=== PATIENT | female | born 1985 | race Caucasian/White ===

== ENCOUNTER 2016-09-10 02:06 | Inpatient (IN) | payer MEDICAID ==
--- NOTE | 2016-09-10 02:15 | EDPHY ---
H & P Source: Patient, EMS - Medical/Surgical History Hx Asthma: No Hx Chronic Respiratory Disease: No Hx Diabetes: No Hx Cardiac Disease: No Hx Renal Disease: No Hx Cirrhosis: No Hx Alcoholism: No Hx HIV/AIDS: No Hx Splenectomy or Spleen Trauma: No Other PMH: None per pt - intubated and aspiration PNE recently. PSHx: hernia 1992. PMHx: bipolar, ADHD, anxiety - Social History Smoking Status: Former smoker <Dom Wilson - Last Filed: 09/10/16 06:51> <Alyssa Chavezh S - Last Filed: 09/10/16 14:33> <Marc Thomas - Last Filed: 09/10/16 21:39> HPI/ROS: HPI CHIEF COMPLAINT: Drug overdose suicidal ideation M1 HISTORY OF PRESENT ILLNESS: This patient is a 31-year-old female significant past medical history for bipolar disorder, hepatitis-C, she presents emergency room on M1 hold. She tells me that she took 5 2 mg Xanax, and 5 Ambien since approximately 30 minutes ago to kill herself. She denies any other ingestion. She tells me she is more depressed she does not have access to her Lamictal or lithium. Upon arrival here in the emergency room she has a GCS 15, she is alert or x4 however she does have slow response. Past Medical History: Bipolar disorder, hepatitis-C Past Surgical History: Denies significant surgical history Social History: Denies use of drugs alcohol tobacco products Family History: Noncontributory ROS REVIEW OF SYSTEMS: A comprehensive 10 point review of systems is otherwise negative aside from elements mentioned in the history of present illness. Exam Constitutional triage nursing summary reviewed, vital signs reviewed, awake/ alert. Slowed speech Eyes normal conjunctivae and sclera, EOMI, PERRLA. HENT normal inspection, atraumatic, moist mucus membranes, no epistaxis, neck supple/ no meningismus, no raccoon eyes. Respiratory clear to auscultation bilaterally, normal breath sounds, no respiratory distress, no wheezing. Cardiovascular rate normal, regular rhythm, no murmur, no edema, distal pulses normal. Gastrointestinal soft, non-tender, no rebound, no guarding, normal bowel sounds, no distension, no pulsatile mass. Genitourinary no CVA tenderness. Musculoskeletal no midline vertebral tenderness, full range of motion, no calf swelling, no tenderness of extremities, no meningismus, good pulses, neurovascularly intact. Skin pink, warm, & dry, no rash, skin atraumatic. Neurologic awake, alert and oriented x 3, AAOx3, moves all 4 extremities equally, motor intact, sensory intact, CN II-XII intact, normal cerebellar, normal vision, slurred speech Psychiatric normal mood/affect. Heme/Lymph/Immune no lymphadenopathy. Differential Diagnosis: Includes but is not limited to in a particular order, polysubstance overdose, drug overdose, intentional overdose for suicide attempt , worsening depression, bipolar disorder Medical Decision Making: this patient had an IV established obtain blood work, including tox screen, alcohol level, Tylenol and salicylate level, patient be hydrated IV fluids obtain EKG should be placed on full monitor and storage bin tender with pulse ox to monitor her oxygen level given that she ingested medications that can depress respiratory status. will need to contact poison Control. Re-evaluation: EKG interpretation by me on record in [facility] system. Impression time of EKG is 2:53 a.m., this is sinus rhythm rate of 75, no signs of cardiac arrhythmia, no signs of ischemia. Borderline prolonged QT interval 428. Otherwise unremarkable EKG. 0524: re-examination at this time patient is still under the influence of benzo she is slurring her speech. She is not medically cleared. She needs further observation. She has not had any hypotension or significant sedation. She is sleepy. Once she metabolize the Xanax and Ambien she will need mental health evaluation. 0651: Sleeping. Stable. Signed over to Dr. Chavez at 7am Shift Change. No acute events overnight. Patient has been stable. Patient still pending mental health evaluation. Still needs to clear from Xanax and Ambien. (Dom Wilson) Constitutional: Initial Vital Signs Temperature (C) 36.9 C 09/10/16 02:19 Heart Rate 77 09/10/16 02:19 Respiratory Rate 14 09/10/16 02:19 Blood Pressure 114/78 09/10/16 02:19 O2 Sat (%) 97 09/10/16 02:19 O2 Delivery Mode Room Air Allergies/Adverse Reactions: No Known Allergies Allergy (Verified 07/10/16 12:28) Home Medications: Medication Instructions Recorded [place]son Carbonate ER [Eskalith Cr 450 mg PO HS #20 tab 07/05/16 450 mg (*)] Alprazolam [Xanax] 2 mg PO DAILY PRN 09/10/16 Dextroamphetamine/Amphetamine 20 mg PO DAILY PRN 09/10/16 [Adderall Xr 20 mg Capsule] QUEtiapine FUMARATE [Seroquel 50 50 mg PO HS 09/10/16 mg (*)] lamOTRIGine [Lamictal] 150 mg PO DAILY 09/10/16 Medical Decision Making <Dom Wilson - Last Filed: 09/10/16 06:51> <Monica Chavez - Last Filed: 09/10/16 14:33> <Marc Thomas - Last Filed: 09/10/16 21:39> ED Course/Re-evaluation: 1115: The patient was evaluated by mental health. They will look for placement for in-patient psychiatric placement. 2:30pm: Awaiting inpatient psychiatric admission. Signed over to Dr. Thomas at shift change. (Monica Chavez) Other Provider: Patient accepted to inpatient psychiatric facility. Stable over the course of my shift. (Marc Thomas) - Data Points Laboratory Results: Laboratory Results 09/10/16 02:28 09/10/16 02:28 Medications Given: Discontinued Medications Sodium Chloride (Ns) 1,000 mls @ 0 mls/hr IV ONCE ONE PRN Reason: Wide Open Stop: 09/10/16 02:20 Last Admin: 09/10/16 02:38 Dose: 1,000 mls Sodium Chloride (Ns) 1,000 mls @ 0 mls/hr IV ONCE ONE PRN Reason: Wide Open Stop: 09/10/16 03:40 Last Admin: 09/10/16 03:41 Dose: 1,000 mls Sodium Chloride (Ns) 1,000 mls @ 0 mls/hr IV ONCE ONE PRN Reason: Wide Open Stop: 09/10/16 06:11 Last Admin: 09/10/16 06:26 Dose: 1,000 mls Lamotrigine (Lamictal) 150 mg PO EDNOW ONE Stop: 09/10/16 09:08 Last Admin: 09/10/16 09:33 Dose: 150 mg [place] Carbonate (Eskalith Cr) 450 mg PO EDNOW ONE Stop: 09/10/16 09:09 Last Admin: 09/10/16 09:33 Dose: 450 mg Nicotine Polacrilex (Nicorette) 4 mg B EDNOW ONE Stop: 09/10/16 09:21 Last Admin: 09/10/16 09:20 Dose: 4 mg Nicotine Polacrilex (Nicorette) 2 mg B EDNOW ONE Stop: 09/10/16 16:26 Last Admin: 09/10/16 16:26 Dose: 2 mg Olanzapine (Zyprexa Zydis) 10 mg PO EDNOW ONE Stop: 09/10/16 15:21 Last Admin: 09/10/16 15:37 Dose: Not Given Departure <Dom Wilson - Last Filed: 09/10/16 06:51> <Monica Chavez - Last Filed: 09/10/16 14:33> <Marc Thomas - Last Filed: 09/10/16 21:39> - Departure Disposition: [facility] Clinical Impression: Suicidal ideation, Xanax use disorder, mild, abuse Condition: Fair <Dom Wilson - Last Filed: 09/10/16 06:51> Report Scribed for: Monica Chavez Report Scribed by: Jada Moyer Date of Report: 09/10/16 Time of Report: 11:16 <Monica Chavez - Last Filed: 09/10/16 14:33> <Marc Thomas - Last Filed: 09/10/16 21:39> Physician Review and Approval Statement: 09/10/16 11:16 Portions of this note were transcribed by a medical device assembler. I personally performed a history, physical exam, medical decision making, and confirmed accuracy of information the transcribed note. (Monica Chavez)
[2016-09-10] MEDS ORDERED: NS 1,000 ML IV ONE ×3 (02:19→06:10)
--- NOTE | 2016-09-10 02:54 | CPEKG ---
Heart Rate: 75 RR Interval: 800 P-R Interval: 158 QRSD Interval: 80 QT Interval: 428 QTC Interval: 479 P Rice: 55 QRS Rice: 78 T Wave Rice: 21 EKG Severity - BORDERLINE ECG - EKG Impression: SINUS RHYTHM EKG Impression: BORDERLINE T ABNORMALITIES, INFERIOR LEADS EKG Impression: BORDERLINE PROLONGED QT INTERVAL Electronically Signed By: Marc Thomas 10-Sep-2016 22:35:24
[2016-09-10 03:20] LABS: % IMMATURE GRANULYOCYTES 0.2 % (0.0-1.1); ABSOLUTE IMMATURE GRANULOCYTES 0.02 10^3/uL (0.00-0.10); ADD DIFF? NO; ADD MORPH? NO; ADD SCAN? NO; ATYPICAL LYMPHOCYTE FLAG 0 (0-99); FRAGMENT RBC FLAG 0 (0-99); HEMATOCRIT 40.2 % (38.0-47.0); HEMOGLOBIN 13.9 g/dL (12.6-16.3); LEFT SHIFT FLG 0 (0-99); LIPEMIA HEMOLYSIS FLAG 90 (0-99); MEAN CELL HEMOGLOBIN 30.5 pg (27.9-34.1); MEAN CELL HEMOGLOBIN CONCENTR. 34.6 g/dL (32.4-36.7); MEAN CELL VOLUME 88.2 fL (81.5-99.8); MEAN PLATELET VOLUME 11.2 fL (8.7-11.7); PLATELET CLUMPS FLAG 0 (0-99); PLATELET COUNT 268 10^3/uL (150-400); RED BLOOD CELL COUNT 4.56 10^6/uL (4.18-5.33); RED CELL DISTRIBUTION WIDTH 12.3 % (11.5-15.2)
[2016-09-10 03:32] LABS: ANION GAP 13 mEq/L (8-16); CALCIUM 9.4 mg/dL (8.5-10.4); CARBON DIOXIDE 21 mEq/l (22-31); CHLORIDE 109 mEq/L (97-110); CREATININE 0.8 mg/dL (0.6-1.0); ETHANOL SERUM < 10 mg/dL (0-10); GLOMERULAR FILTRATION RATE > 60; GLUCOSE 91 mg/dL (70-100); POTASSIUM 3.5 mEq/L (3.5-5.2); SALICYLATE < 1.0 mg/dL (2.0-20.0); SODIUM 143 mEq/L (134-144)
[2016-09-10 04:06] LABS: ALBUMIN 4.3 g/dL (3.5-5.0); BILIRUBIN,TOTAL 0.8 mg/dL (0.1-1.4); BILIRUBIN-CONJUGATED 0.5 mg/dL (0.0-0.5); BILIRUBIN-UNCONJUGATED 0.3 mg/dL (0.0-1.1); TOTAL PROTEIN 7.2 g/dL (6.3-8.2)
[2016-09-10 07:15] LABS: LITHIUM < 0.2 mEq/L (0.6-1.2)
[2016-09-10] MEDS ORDERED: lamoTRIgine 100 MG TAB PO ONE (09:07)
[2016-09-10] MEDS ORDERED: LITHIUM CARBONATE ER 450 MG TAB PO ONE (09:08)
[2016-09-10] MEDS ORDERED: NICOTINE POLACRILEX 2 MG GUM B ONE ×4 (09:16→16:25)
[2016-09-10] MEDS ORDERED: LORazepam 1 MG TAB ONE (11:42)
[2016-09-10] MEDS ORDERED: OLANZapine DISINTEGR 10 MG TAB PO ONE (15:20)
[2016-09-10] MEDS ORDERED: MAGNESIUM HYDROXIDE 30 ML UDCUP PO PRN (17:56)
[2016-09-10] MEDS ORDERED: MAG HYDROX/AL HYDROX/SIMETH 30 ML UDCUP PO PRN (17:57)
[2016-09-10] MEDS: LORazepam 0.5 MG TAB PO PRN (18:50)
[2016-09-10] MEDS: QUEtiapine FUMARATE 50 MG TAB PO SCH (19:26)
[2016-09-10] MEDS: NICOTINE POLACRILEX 2 MG GUM B PRN (19:32)
[2016-09-10] MEDS ORDERED: LITHIUM CARBONATE ER 450 MG TAB PO SCH (21:00)
[2016-09-11] MEDS: NICOTINE POLACRILEX 2 MG GUM B PRN ×3 (08:51→20:01)
[2016-09-11] MEDS: LORazepam 0.5 MG TAB PO PRN (08:51)
[2016-09-11] MEDS: lamoTRIgine 100 MG TAB PO SCH (08:51)
[2016-09-11] MEDS ORDERED: OLANZapine DISINTEGR 10 MG TAB ONE (09:04)
[2016-09-11] MEDS ORDERED: OLANZapine DISINTEGR 5 MG TAB ONE (09:04)
[2016-09-11] MEDS ORDERED: LITHIUM CARBONATE ER 450 MG TAB PO SCH (09:16)
[2016-09-11] MEDS ORDERED: OLANZapine DISINTEGR 5 MG TAB PO ONE (09:30)
[2016-09-11] MEDS ORDERED: NICOTINE POLACRILEX 2 MG GUM B ONE (10:00)
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
[2016-09-11] MEDS: LORazepam 1 MG TAB PO PRN (16:40)
--- NOTE | 2016-09-11 17:33 | BCON ---
[f rep st] BEHAVIORAL HEALTH CONSULTATION INTERNAL MEDICINE CONSULTATION DATE OF CONSULTATION: 09/11/2016 REFERRING PHYSICIAN: Preethi [place] MD REASON FOR REFERRAL: Medical clearance for inpatient behavioral health stay. HISTORY OF PRESENT ILLNESS: Ms. Sanchez was admitted through the emergency department yesterday with a chief complaint of "I'm feeling manic." She reported that she had taken five 2-mg tablets of Xanax and 5 Ambien tablets, and also smoked marijuana as a cry for help. She had recently lost her job. She was evaluated by the mental health team and admitted for further psychiatric care. Other than feeling sleepy, she is currently without any acute complaints. PAST MEDICAL HISTORY: 1. Bipolar disorder. 2. Hepatitis C. 3. Hanging episode in March of 2016. 4. Cardiomyopathy and tachycardia following the hanging episode. 5. Aspiration pneumonia after the hanging episode. PAST SURGICAL HISTORY: She has not had any surgeries. ALLERGIES: There are no known drug allergies. MEDICATIONS: She had been noncompliant. Her outpatient medications were: 1. Lamotrigine 150 mg p.o. daily. 2. Dextroamphetamine/amphetamine 20 mg p.o. daily p.r.n. 3. Alprazolam 2 mg p.o. daily p.r.n. 4. [place] 400 mg p.o. q.h.s. 5. Quetiapine 50 mg q.a.m. p.o. q.h.s. SOCIAL HISTORY: She is a former smoker. She has a history of alcohol use. She has a history of heroin abuse since age 20, but she has been abstinent since 2015. FAMILY HISTORY: Her half-sister committed suicide. Her brother has bipolar disorder and her mother has ADHD. REVIEW OF SYSTEMS: Other than feeling sleepy, a 10-point review of systems was done and was negative. PHYSICAL EXAM: VITALS: Blood pressure this morning was 156/86. Previously on her current stay, it has mostly been low or normal. Her heart rate was 87, her respiratory rate was 16, her oxygen saturation was 99% on room air, her temperature was 36.4 degrees centigrade. Her weight is 65.8 kg for a body mass index of 22.7. GENERAL: This is a well-nourished, well-developed woman who appears her chronologic age, cooperative, and in no acute distress. HEENT: Extraocular movements are intact. Pupils are equal, round, and reactive to light. Mucous membranes are moist. Dentition is in good condition. NECK: Supple. HEART: There is a regular rate and rhythm with no murmurs, rubs, or gallops. LUNGS: Clear to auscultation bilaterally. ABDOMEN: Soft, nontender , nondistended with normoactive bowel sounds. EXTREMITIES: There is no cyanosis, clubbing, or edema. NEUROLOGIC: She is napping when first encountered. She is easily awakened. She is alert and oriented x3. Cranial nerves 2-12 are grossly intact. There is no focal weakness. Sensation is intact to light touch, and gait is within normal limits. LABORATORY STUDIES: From the emergency room, CBC was completely within normal limits. Serum chemistries revealed a slightly low carbon dioxide of 21. Otherwise, renal function, electrolytes, and liver function were within normal limits. Toxicology screen in the serum was negative for salicylates, acetaminophen, or ethyl alcohol, and lithium was undetectable. Toxicology screen in the urine was non-negative for benzodiazepines and marijuana, and was otherwise negative for any substances of abuse. ASSESSMENT AND RECOMMENDATIONS: 1. Bipolar disorder: Currently being evaluated for medication changes by Psychiatry. 2. Hepatitis C by history: She has normal liver function tests, and no signs or symptoms of liver dysfunction. 3. Elevated blood pressure on 1 determination this morning; otherwise, she has mostly been normotensive or slightly low. Unclear etiology of the elevated blood pressure. Advise continuing to monitor. There is no indication to start medications at this point. I see no medical contraindications to this patient's continued stay in the inpatient behavioral health unit, or to any psychiatric medications or procedures. Thank you very much for including me in the care of this patient, and please do not hesitate to contact me or the hospitalist service should there be need for further medical evaluation. /[id number]/MODL MTDD
[2016-09-11] MEDS: LITHIUM CARBONATE 600 MG CAP PO SCH (19:48)
[2016-09-11] MEDS: QUEtiapine FUMARATE 50 MG TAB PO SCH (19:49)
[2016-09-11] MEDS: OLANZapine DISINTEGR 10 MG TAB PO PRN (19:50)
[2016-09-11] MEDS: ONDANSETRON DISINTEGRATING 4 MG TAB PO PRN (21:36)
[2016-09-12] MEDS: LITHIUM CARBONATE 600 MG CAP PO SCH ×2 (08:07→20:44)
[2016-09-12] MEDS: lamoTRIgine 100 MG TAB PO SCH (08:07)
[2016-09-12] MEDS: LORazepam 1 MG TAB PO PRN (08:10)
[2016-09-12] MEDS: OLANZapine DISINTEGR 10 MG TAB PO PRN (08:24)
[2016-09-12] MEDS: NICOTINE POLACRILEX 2 MG GUM B PRN ×3 (08:24→19:27)
--- NOTE | 2016-09-12 10:54 | SOAPPROG ---
SOAP Progress Note Assessment/Plan: Assessment: Pt is a 31 y/o S [employer] female who is known to this MD from previous psych admission 03/21 who has a hx of Bipolar D/O and heroin addiction who came in after she took an OD of meds and appeared manic. Plan:Pt is sleeping after received prn med will place pt on a STC Will continue current meds pt as put on Adderall and Xanax as an outpatient and her [place] lowered which contributed to her decompensation 09/12/16 10:50 Subjective: Pt earlier was agitated, lying on the floor, with manic sx -now is sleeping after given PRN meds Objective: Vital Signs Temp Pulse Resp BP Pulse Ox 36.4 C 76 14 136/76 H 94 09/12/16 06:00 09/12/16 06:00 09/12/16 06:00 09/12/16 06:00 09/12/16 06:00 Pt was manic this morning with psychomotor agitation she slept 8 hours last night + sx of acute michelle speech-pressured thoughts-illogical at times + Grandiosity memory-intact I/J-limited - Time Spent With Patient Time Spent With Patient: 20' - Pending Discharge Pending Discharge Within 24 Hours: No Pending Discharge Within 48 Hours: No ICD10 Worksheet Patient Problems: Problems Problem Status Diagnosed Suicidal ideation Acute Xanax use disorder, mild, abuse Acute Asphyxiation by hanging Acute
[2016-09-12] MEDS: QUEtiapine FUMARATE 50 MG TAB PO SCH (20:44)
[2016-09-13] MEDS: NICOTINE POLACRILEX 2 MG GUM B PRN ×6 (07:09→21:05)
[2016-09-13] MEDS: LORazepam 1 MG TAB PO PRN ×4 (07:38→19:03)
[2016-09-13] MEDS: LITHIUM CARBONATE 600 MG CAP PO SCH ×2 (09:07→20:23)
[2016-09-13] MEDS: lamoTRIgine 100 MG TAB PO SCH (09:07)
--- NOTE | 2016-09-13 11:19 | SOAPPROG ---
SOAP Progress Note Assessment/Plan: Assessment: Pt is a 31 y/o S [employer] female who is known to this MD from previous psych admission 03/21 who has a hx of Bipolar D/O and heroin addiction who came in after she took an OD of meds and appeared manic. Plan:Pt is stabilizing on a STC Will continue current meds pt as put on Adderall and Xanax as an outpatient and her [place] lowered which contributed to her decompensation AG Will increase Lamictal back to 200mg 09/13/16 11:19 Subjective: Pt with labile mood-angry at her employer as she feels they "made" her decompensate Objective: Vital Signs Temp Pulse Resp BP Pulse Ox 36.4 C 76 14 136/76 H 94 09/12/16 06:00 09/12/16 06:00 09/12/16 06:00 09/12/16 06:00 09/12/16 06:00 Pt is A+O x4 mood-labile affect-broad no S/H I no A/V H speech-pressured thoughts-more logical slept 9.5 hours energy level-wnl memory-impaired for recent events SR. LOGISTICS ANALYST conc-fair no formal delusions I/J-fair - Time Spent With Patient Time Spent With Patient: 25' - Pending Discharge Pending Discharge Within 24 Hours: No Pending Discharge Within 48 Hours: No ICD10 Worksheet Patient Problems: Problems Problem Status Diagnosed Suicidal ideation Acute Xanax use disorder, mild, abuse Acute Asphyxiation by hanging Acute
[2016-09-13] MEDS: OLANZapine DISINTEGR 10 MG TAB PO PRN ×2 (12:16→17:57)
[2016-09-13] MEDS: QUEtiapine FUMARATE 50 MG TAB PO SCH (20:23)
[2016-09-14] MEDS: LITHIUM CARBONATE 600 MG CAP PO SCH ×2 (07:23→20:35)
[2016-09-14] MEDS: LORazepam 1 MG TAB PO PRN ×3 (07:25→17:23)
[2016-09-14] MEDS: lamoTRIgine 100 MG TAB PO SCH (07:25)
[2016-09-14] MEDS: NICOTINE POLACRILEX 2 MG GUM B PRN ×5 (07:26→19:06)
[2016-09-14] MEDS: OLANZapine DISINTEGR 10 MG TAB PO PRN (07:26)
[2016-09-14] MEDS: ONDANSETRON DISINTEGRATING 4 MG TAB PO PRN (07:43)
--- NOTE | 2016-09-14 11:43 | SOAPPROG ---
SOAP Progress Note Assessment/Plan: Assessment: Pt is a 31 y/o S Jehovah'S Witness female who is known to this MD from previous psych admission 03/21 who has a hx of Bipolar D/O and heroin addiction who came in after she took an OD of meds and appeared manic. Plan:Pt is stabilizing on a STC Will continue current meds pt as put on Adderall and Xanax as an outpatient and her [place] lowered which contributed to her decompensation AG Will increase Lamictal back to 200mg 09/14/16 11:41 Subjective: "Up and down." Objective: Vital Signs Temp Pulse Resp BP Pulse Ox 36.4 C 76 14 136/76 H 94 09/12/16 06:00 09/12/16 06:00 09/12/16 06:00 09/12/16 06:00 09/12/16 06:00 Pt is A+O x4 mood-labile affect-broad speech-pressured thoughts-grandiose, paranoid about previous employer + sx michelle no A/V H no S/H I memory-intact conc-fair no STACEY I/J-fair - Time Spent With Patient Time Spent With Patient: 25' - Pending Discharge Pending Discharge Within 24 Hours: No Pending Discharge Within 48 Hours: No ICD10 Worksheet Patient Problems: Problems Problem Status Diagnosed Suicidal ideation Acute Xanax use disorder, mild, abuse Acute Asphyxiation by hanging Acute
[2016-09-14] MEDS: QUEtiapine FUMARATE 50 MG TAB PO SCH (20:36)
[2016-09-15] MEDS: NICOTINE POLACRILEX 2 MG GUM B PRN ×6 (04:40→18:42)
[2016-09-15] MEDS: LORazepam 1 MG TAB PO PRN ×4 (04:44→18:41)
[2016-09-15] MEDS: lamoTRIgine 100 MG TAB PO SCH (08:11)
[2016-09-15] MEDS: LITHIUM CARBONATE 600 MG CAP PO SCH ×2 (08:11→20:27)
--- NOTE | 2016-09-15 10:26 | SOAPPROG ---
SOAP Progress Note Assessment/Plan: Assessment: Pt is a 31 y/o S Congregational female who is known to this MD from previous psych admission 03/21 who has a hx of Bipolar D/O and heroin addiction who came in after she took an OD of meds and appeared manic. 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
[2016-09-15] MEDS: QUEtiapine FUMARATE 50 MG TAB PO SCH (20:26)
[2016-09-16] MEDS: LORazepam 1 MG TAB PO PRN ×5 (04:03→20:50)
[2016-09-16] MEDS: NICOTINE POLACRILEX 2 MG GUM B PRN ×6 (04:14→20:08)
[2016-09-16] MEDS: OLANZapine DISINTEGR 10 MG TAB PO PRN (05:38)
[2016-09-16] MEDS: lamoTRIgine 100 MG TAB PO SCH (08:13)
[2016-09-16] MEDS: LITHIUM CARBONATE 600 MG CAP PO SCH ×2 (08:13→19:24)
[2016-09-16] MEDS: QUEtiapine FUMARATE 50 MG TAB PO SCH (19:25)
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
[2016-09-16] MEDS: QUEtiapine FUMARATE 50 MG TAB PO PRN (21:49)
[2016-09-17] MEDS: LORazepam 1 MG TAB PO PRN ×5 (04:20→19:14)
[2016-09-17] MEDS: QUEtiapine FUMARATE 50 MG TAB PO PRN ×2 (04:24→11:04)
[2016-09-17] MEDS: NICOTINE POLACRILEX 2 MG GUM B PRN ×4 (05:44→18:03)
[2016-09-17] MEDS: lamoTRIgine 100 MG TAB PO SCH (06:07)
[2016-09-17] MEDS: ONDANSETRON DISINTEGRATING 4 MG TAB PO PRN (06:17)
[2016-09-17] MEDS: LITHIUM CARBONATE 600 MG CAP PO SCH ×2 (08:31→19:09)
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
[2016-09-17] MEDS: QUEtiapine FUMARATE 50 MG TAB PO SCH (19:08)
[2016-09-18] MEDS: lamoTRIgine 100 MG TAB PO SCH (05:08)
[2016-09-18] MEDS: LITHIUM CARBONATE 600 MG CAP PO SCH ×2 (05:09→19:19)
[2016-09-18] MEDS: QUEtiapine FUMARATE 50 MG TAB PO PRN ×2 (10:48→17:25)
[2016-09-18] MEDS: LORazepam 1 MG TAB PO PRN ×3 (10:48→19:18)
[2016-09-18] MEDS: NICOTINE POLACRILEX 2 MG GUM B PRN ×3 (10:49→17:25)
--- NOTE | 2016-09-18 11:25 | SOAPPROG ---
SOAP Progress Note Assessment/Plan: Assessment: Pt is a 31 y/o S Orthodox female who is known to this MD from previous psych admission 03/21 who has a hx of Bipolar D/O and heroin addiction who came in after she took an OD of meds and appeared manic. 09/18/16-pt still labile and wants to leave today Plan:Pt is stabilizing on a STC Will continue current meds pt as put on Adderall and Xanax as an outpatient and her [place] lowered which contributed to her decompensation AG Will continue Lamictal 200mg QD Li level from am =1.0 09/18/16 11:23 Subjective: Pt tearful and states, "I got angry with those bitches in group." Objective: Vital Signs Temp Pulse Resp BP Pulse Ox 36.7 C 75 14 121/65 H 97 09/18/16 06:00 09/18/16 06:00 09/18/16 06:00 09/18/16 06:00 09/18/16 06:00 Pt is A+O x4 mood-labile affect-broad thoughts-paranoid, grandiose speech-pressured, loud, cursing no S/H I no A/V H sleep and appetite are good some psychomotor agitation memory-fair conc-poor no STACEY I/J-fair - Time Spent With Patient Time Spent With Patient: 25' - Pending Discharge Pending Discharge Within 24 Hours: No Pending Discharge Within 48 Hours: No ICD10 Worksheet Patient Problems: Problems Problem Status Diagnosed Suicidal ideation Acute Xanax use disorder, mild, abuse Acute Asphyxiation by hanging Acute
[2016-09-18] MEDS: QUEtiapine FUMARATE 50 MG TAB PO SCH (19:19)
[2016-09-18 20:52] LABS: COLOR YELLOW; LEUKOCYTE ESTERASE,URINE 3+ (NEGATIVE); NITRITE,URINE NEGATIVE (NEGATIVE)
[2016-09-18 20:55] LABS: BACTERIA 2+ /hpf (NONE SEEN); MUCUS 2+ /lpf (NONE-1+)
[2016-09-19] MEDS: LITHIUM CARBONATE 600 MG CAP PO SCH ×2 (07:01→22:51)
[2016-09-19] MEDS: lamoTRIgine 100 MG TAB PO SCH (07:02)
[2016-09-19] MEDS: NICOTINE POLACRILEX 2 MG GUM B PRN ×5 (07:03→22:49)
[2016-09-19] MEDS: ADDERALL 20 MG TAB PO SCH ×2 (10:33→14:41)
--- NOTE | 2016-09-19 12:01 | SOAPPROG ---
SOAP Progress Note Assessment/Plan: Assessment: Pt is a 31 y/o S Zoroastrianism female who is known to this MD from previous psych admission 03/21 who has a hx of Bipolar D/O and heroin addiction who came in after she took an OD of meds and appeared manic. 09/18/16-pt still labile and wants to leave today Plan:Pt is stabilizing on a STC Will continue current meds AG Will continue Lamictal 200mg QD Li level from 09/17/16 =1.0 Adderall 20mg BID today for ADHD D/C tomorrow if remains stable 09/19/16 11:58 Subjective: Pt with no x/o states the Adderall is helping her to get paperwork done for her job Objective: Vital Signs Temp Pulse Resp BP Pulse Ox 36.6 C 75 13 101/62 99 09/19/16 06:00 09/19/16 06:00 09/19/16 06:00 09/19/16 06:00 09/19/16 06:00 Pt is A+O X4 mood-euthymic affect-appr slept 7.5 hours thoughts-logical and coherent no delusions no S/H I appetite/energy level-good no A/V H no sx acute michelle memory-intact conc-improved I/J-improving - Time Spent With Patient Time Spent With Patient: 25' - Pending Discharge Pending Discharge Within 24 Hours: Yes Pending Discharge Within 48 Hours: Yes Pending Discharge Date: 09/20/16 Pending Discharge Time: 11:00 ICD10 Worksheet Patient Problems: Problems Problem Status Onset Suicidal ideation Acute Xanax use disorder, mild, abuse Acute Asphyxiation by hanging Acute
[2016-09-19] MEDS ORDERED: ADDERALL 20 MG TAB PO SCH (15:00)
[2016-09-19] MEDS: QUEtiapine FUMARATE 50 MG TAB PO SCH (22:51)
[2016-09-20] MEDS: NICOTINE POLACRILEX 2 MG GUM B PRN ×6 (01:09→20:05)
[2016-09-20] MEDS: LORazepam 1 MG TAB PO PRN ×5 (01:28→19:39)
[2016-09-20] MEDS: LITHIUM CARBONATE 600 MG CAP PO SCH ×2 (06:50→19:39)
[2016-09-20] MEDS: lamoTRIgine 100 MG TAB PO SCH (06:50)
[2016-09-20 06:52] VITALS: TEMP 97.7
[2016-09-20] MEDS: QUEtiapine FUMARATE 50 MG TAB PO PRN ×2 (10:11→15:40)
[2016-09-20] MEDS: ADDERALL 20 MG TAB PO SCH (10:24)
--- NOTE | 2016-09-20 13:36 | SOAPPROG ---
SOAP Progress Note Assessment/Plan: Assessment: Pt is a 31 y/o S Druze female who is known to this MD from previous psych admission 03/21 who has a hx of Bipolar D/O and heroin addiction who came in after she took an OD of meds and appeared manic. 09/18/16-pt still labile and wants to leave today 09/19/16-to give trial of Adderall to see how it affects pt at her insistence 09/20/16-pt got Adderall 20mg BID yesterday and did not sleep at all Plan:Pt is stabilizing on a STC Will continue current meds AG Will continue Lamictal 200mg QD Li level from 09/17/16 =1.0 D/C 10/01 if remains stable 09/20/16 13:33 Subjective: "I finally had a clear head last night. I was going over all work problems. Go ahead , call this delusional and manic." Objective: Vital Signs Temp Pulse Resp BP Pulse Ox 36.5 C 93 13 122/68 H 96 09/20/16 06:00 09/20/16 06:00 09/20/16 06:00 09/20/16 06:00 09/20/16 06:00 Pt is A+O x4 mood-anxious affect-appr thoughts-logical +med seeking for Adderall no sleep last night speech-wnl no delusions no A/V H no S/H I memory-intact I/J-fair - Time Spent With Patient Time Spent With Patient: 25' - Pending Discharge Pending Discharge Within 24 Hours: Yes Pending Discharge Within 48 Hours: Yes Pending Discharge Date: 09/21/16 Pending Discharge Time: 11:00 ICD10 Worksheet Patient Problems: Problems Problem Status Onset Suicidal ideation Acute Xanax use disorder, mild, abuse Acute Asphyxiation by hanging Acute
[2016-09-20] MEDS: QUEtiapine FUMARATE 50 MG TAB PO SCH (19:38)
[2016-09-21 03:52] VITALS: BP 111/54; PULSE 80; RESP 16; O2SAT 97
[2016-09-21] MEDS: QUEtiapine FUMARATE 50 MG TAB PO PRN (04:52)
[2016-09-21] MEDS: LORazepam 1 MG TAB PO PRN (04:52)
[2016-09-21] MEDS: lamoTRIgine 100 MG TAB PO SCH (04:53)
[2016-09-21] MEDS: LITHIUM CARBONATE 600 MG CAP PO SCH (04:53)
[2016-09-21] MEDS: NICOTINE POLACRILEX 2 MG GUM B PRN ×2 (05:02→07:00)
[2016-09-21] MEDS: ONDANSETRON DISINTEGRATING 4 MG TAB PO PRN (07:17)
[2016-09-21] MEDS: ADDERALL 20 MG TAB PO SCH (08:54)
--- NOTE | 2016-09-21 14:37 | BDS ---
[f rep st] BEHAVIORAL HEALTH DISCHARGE SUMMARY CHIEF COMPLAINT: "I am hypomanic." HISTORY OF PRESENT ILLNESS: The patient is a 31-year-old, single, Yazidi female who is known to this MD from previous hospitalization in March from 03/28/2016 to 04/06/2016 [facility] The patient was stabilized on Lamictal and lithium and discharged. She stayed in the area due to her legal problems. She is originally from the [facility]. She has a long history of bipolar disorder and opiate dependence, as well as cannabis use disorder. This admission the patient presented to the ED on 09/10/2016 at 2:15 a.m., reporting she took 5 mg Xanax and 5 Ambien 30 minutes before for a "cry for help." She states she needs her medications adjusted and does not have access to lithium or Lamictal, which she is supposed to be taking. The patient reported to [facility], " I took the pills and smoked marijuana as a cry for help. Bipolar disorder is ruining my life. I lost my job. I was overwhelmed and devastatingly beyond belief. 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 When I went to the walk-in clinic yesterday, I was not being honest about the severity of my suicidal ideation and the depth of my desperation. I have been off my medications for days. I'm confused about what to take. I need structure and help." ADMISSION DIAGNOSES: Bipolar disorder, recent episode mixed; opiate use disorder, severe, in full remission; Cannabis use disorder, severe; history of hanging, 03/25/2016, in the intermediate; history of hepatitis C. [place] on admission is 20. HOSPITAL COURSE: The patient was restarted on lithium 600 mg b.i.d. She had already been restarted on Lamictal 150mg daily, and that was increased back to 200md daily She had no side effects from medication. She was also given Zyprexa p.r.n. and Ativan 1-2 mg p.r.n., as well as Seroquel 50 mg b.i.d. p.r.n. and 50 mg of Seroquel q.h.s. For the first 5 days of her hospitalization, she had severe mood swings. She slept well during the night, but in the morning, she would be agitated, requiring p.r.n.'s and then would go to sleep. Slowly, she recompensated and was attending groups and activities and socializing with peers. She was eating well, and she denied suicidal ideation throughout her hospitalization but did want to be restarted on her meds, which kept her stable. 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 The patient states that this caused her to decompensate. She also was seeing a nurse practitioner, Amira Lua, nurse practitioner, and was only on lithium 450 mg and Lamictal 150 mg daily. However, she had not been taking it. She was also placed on Adderall XR 20 mg daily and Xanax 2 mg daily, which are contraindicated in this patient due to heroin addiction, especially the Xanax. The patient did request a trial of Adderall while she was here to see how it would help her. She was offered a 1-day trial. That night, she slept 0 hours, so that was discontinued. She was told that this is not a good medication for her. However, she will probably go back to her provider and get it anyway. She slept well during her hospitalization, except the day she took the Adderall, which was 08/19/2016. On discharge, she had no symptoms of michelle. Was eating and sleeping well. She was put on a short-term cert when her M1 because there was a chance that she would not stay if she was voluntary and needed more hospitalization time. LABS: CBC was normal. Chem panel was normal. [place] level was 1.0 on 2016. DISCHARGE MEDICATIONS: Seroquel 50 mg q.h.s., Lamictal 200 mg daily, lithium 600 mg b.i.d. MENTAL STATUS EXAMINATION: On discharge, patient is alert and oriented x4. Mood is euthymic. Affect is appropriate. Thoughts logical and coherent. Sleep, appetite and energy level are normal. Speech: Normal rate and rhythm. No delusions. No symptoms of psychosis or michelle. No auditory or visual hallucinations. No suicidal or homicidal ideation. Memory intact. IQ-above avg MARQUEZ/conc-wnl Insight and judgment are fair. DISCHARGE PLAN: Patient has appointments with [facility] set up by the career based intervention coordinator. She had a court in [place] for a DUI today at 1:30, so she was discharged at 9:30am. Her [facility] appointment is Sunday, 09/26, at 9 a.m. It is to be advised that she should not be placed back on benzos or Adderall due to her history. DISCHARGE DIAGNOSES: Bipolar disorder, mixed episode, resolved; opiate use disorder, severe, in full remission; cannabis use disorder, severe; history of hanging, 03/25/2016, in the intermediate; history of hep C. [place] on discharge is 60. DISCHARGE PLAN: The patient's short-term cert will be terminated. She will be discharged voluntarily. She will return to her home with roommates, and she will drive to her DUI appointment in [place] and follow up at [facility]. She is psychiatrically and medically stable for discharge. /[id number]/MODL MTDD
== END 2016-09-21 09:50 | disposition home or self-care (01) | DRG 885 ==
LOC: EDUNIT# → BBEH 16:50
PROVIDERS: ADMIT Psychiatry & Neurology Psychiatry; ATTEND Psychiatry & Neurology Psychiatry
DX: F31.63 Bipolar disorder, current episode mixed, severe, without psychotic features (principal); F90.9 Attention-deficit hyperactivity disorder, unspecified type; T42.4X2A Poisoning by benzodiazepines, intentional self-harm, initial encounter; T42.6X2A Poisoning by other antiepileptic and sedative-hypnotic drugs, intentional self-harm, initial encounter; F12.90 Cannabis use, unspecified, uncomplicated; F11.90 Opioid use, unspecified, uncomplicated; B19.20 Unspecified viral hepatitis C without hepatic coma
CPT/HCPCS: 80305; G0480

== ENCOUNTER 2018-02-27 15:35 | Emergency (ER) | payer MEDICAID ==
[2018-02-27] MEDS ORDERED: IBUPROFEN 800 MG TAB PO ONE (16:19)
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
[2018-02-27 17:53] VITALS: BP 126/76
== END 2018-02-27 17:51 | disposition home or self-care (01) ==
LOC: EDUNIT#
DX: S80.212A Abrasion, left knee, initial encounter (principal); S90.512A Abrasion, left ankle, initial encounter; S70.212A Abrasion, left hip, initial encounter; Z87.891 Personal history of nicotine dependence; V00.148A Other scooter (nonmotorized) accident, initial encounter; Y92.410 Unspecified street and highway as the place of occurrence of the external cause; Y99.8 Other external cause status; Y93.89 Activity, other specified

== ENCOUNTER 2018-04-28 16:54 | Emergency (ER) | payer MEDICAID ==
[2018-04-28 17:04] VITALS: BP 115/87
--- NOTE | 2018-04-28 17:06 | EDPHY ---
H & P Stated Complaint: FRUSTRATED/OVERWHELMED DENIES SI Time Seen by Provider: 04/28/18 17:06 HPI/ROS: CHIEF COMPLAINT: Frustrated HISTORY OF PRESENT ILLNESS: The patient has a history of bipolar mood disorder. She has had a very complicated several months history of losing her job in being incarcerated for harassing her former employer. The patient was released from half-way on Sunday. She has hearing on Sunday to discuss her qualifications for unemployment. She is overwhelmed does not feel that can attend that meeting. The patient is currently living in an apartment. She has a roommate. She denies any suicidal or homicidal ideation. She is in the process of establishing care with [facility]. The patient is on a number of psychiatric medications currently. She is wondering if Seroquel may be a more appropriate medication for her symptoms. The patient denies any acute medical complaints. REVIEW OF SYSTEMS: A comprehensive 10 point review of systems is otherwise negative aside from elements mentioned in the history of present illness. Source: Patient Exam Limitations: No limitations - Personal History LMP (Females 10-55): Now Current Tetanus Diphtheria and Acellular Pertussis (TDAP): Unsure - Medical/Surgical History Hx Asthma: No Hx Chronic Respiratory Disease: No Hx Diabetes: No Hx Cardiac Disease: No Hx Renal Disease: No Hx Cirrhosis: No Hx Alcoholism: No Hx HIV/AIDS: No Hx Splenectomy or Spleen Trauma: No Other PMH: None per pt - intubated and aspiration PNE recently. PSHx: hernia 1993. PMHx: bipolar, ADHD, anxiety. IV DRUG ABUSE - Social History Smoking Status: Former smoker - Physical Exam Exam: General Appearance: Alert, no distress Eyes: Pupils equal and round no pallor or injection ENT, Mouth: Mucous membranes moist Respiratory: There are no retractions, lungs are clear to auscultation Cardiovascular: Regular rate and rhythm Gastrointestinal: Abdomen is soft and nontender, no masses, bowel sounds normal Neurological: A&O, normal motor function, normal sensory exam, normal cranial nerves Skin: Warm and dry, no rashes Musculoskeletal: Neck is supple nontender Extremities: symmetrical, full range of motion Psychiatric: Cooperative, non-agitated, slightly pressured speech, denies suicidal or homicidal ideation Constitutional: Initial Vital Signs Temperature (C) 36.7 C 04/28/18 17:00 Heart Rate 96 04/28/18 17:00 Respiratory Rate 18 04/28/18 17:00 Blood Pressure 115/87 H 04/28/18 17:00 O2 Sat (%) 99 04/28/18 17:00 O2 Delivery Mode Room Air Allergies/Adverse Reactions: No Known Allergies Allergy (Verified 04/28/18 16:56) Home Medications: Medication Instructions Recorded Easley Carbonate [Easley 600 mg PO BID@ #30 cap 09/21/16 Carbonate 600 mg cap (*)] lamoTRIgine [LamICTAL 100 MG (*)] 200 mg PO DAILY@0700 #60 tab 09/21/16 Adderall 10 MG (*) 04/28/18 Ambien 04/28/18 Propranolol HCl 04/28/18 Xanax 04/28/18 Medical Decision Making ED Course/Re-evaluation: The patient does not currently meet criteria for an involuntary psychiatric hold. She is interested in going to the walk-in center at [facility] to establish care and follow up with a prescriber. The patient has been asked that I provide her with a note stating that I recommend that she withhold her unemployment hearing on Sunday pending evaluation by [facility]. I feel that this is reasonable. The patient is not decompensated from a psychiatric standpoint. Departure - Departure Disposition: Home, Routine, Self-Care Clinical Impression: Bipolar mood disorder Condition: Good Instructions: Bipolar Disorder (ED) Additional Instructions: 1. Please follow-up with the mental health resources provided in the ED today. 2. [facility] does operate a 26/02 psychiatric crisis unit located at [facility]. The telephone number for the 24 hour crisis center is [phone]. 3. Please return to the ED if you are feeling suicidal, having thoughts of harming yourself/others or should you feel unsafe or have worsening symptoms. 4. It is my opinion that it would be reasonable to postpone your hearing scheduled on SundayApril 29, until you have time to establish better psychiatric care with [facility]. Referrals: [facility],. [Clinic] - As per Instructions
== END 2018-04-28 17:43 | disposition home or self-care (01) ==
DX: F31.9 Bipolar disorder, unspecified (principal)

== ENCOUNTER → 2018-09-11 | Outpatient (CLI) | payer MEDICAID, OTHER | LOC: FIMAGING 06:38 | PROVIDERS: ATTEND Psychiatry & Neurology Neurology | DX: T71.1 Asphyxiation due to mechanical threat to breathing (principal) ==

== ENCOUNTER → 2018-10-03 | Outpatient (CLI) | payer MEDICAID ==
--- NOTE | 2018-10-07 13:26 | CPEEG ---
[f rep st] ELECTROENCEPHALOGRAM 4-HOUR VIDEO EEG DATE OF STUDY: 10/03/2018 DATE OF INTERPRETATION: 10/07/2018 INTERPRETATION: This 4-hour video EEG recording is normal. There were no potentially epileptogenic abnormalities present during the awake or sleep recordings. The patient did not have any clinical ev ents during the video EEG monitoring session. REPORT: This 4-hour video EEG contains 10 Hz alpha activity at the posterior head regions. There wa s no abnormal activation at rest, photic stimulation or hyperventilation. The patient became drowsy and fell into sustained sleep during the study. There was no abnormal activation during drowsiness, sleep, or during times of arousal. The patient did not have any clinical events during the video EEG monitoring session. /[id number]/MODL
== END ==
LOC: FCPNEURO 08:27
PROVIDERS: ATTEND Psychiatry & Neurology Neurology
DX: T71.1 Asphyxiation due to mechanical threat to breathing (principal)